=== PATIENT | male | born 1970 | race Caucasian/White ===

== ENCOUNTER 2024-02-19 10:00 | Outpatient (AMB) | payer OTHER, SELFPAY ==
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
[2024-02-19 10:16] VITALS: BP 138/98; PULSE 77; O2SAT 98; BMI 29.7
== END 2024-02-19 11:43 | disposition home or self-care (01) ==
PROVIDERS: PCP Physician Assistant Medical; Visit Provider Nurse Practitioner Family
DX: R25.1 Tremor, unspecified (principal); R41.89 Other symptoms and signs involving cognitive functions and awareness; G43.009 Migraine without aura, not intractable, without status migrainosus
CPT/HCPCS: 99204

== ENCOUNTER → 2024-02-19 10:00 | Outpatient (BNVA) | payer OTHER, SELFPAY | PROVIDERS: PCP Physician Assistant Medical; Visit Provider Nurse Practitioner Family ==

== ENCOUNTER 2024-04-08 12:53 | Outpatient (REF) | payer OTHER, SELFPAY ==
--- NOTE | 2024-04-08 12:57 | EEG_ITS ---
FINDINGS: This is a 16-channel EEG with an EKG lead. The patient is reported awake during the tracing. Background EEG rhythm is low to medium amplitude fast with no obvious asymmetry or paroxysmal tendency. Rare lead and muscle artifacts are noted. Photic stimulation does not produce any significant abnormality. Hyperventilation is not performed. Cardiac lead does not reveal any significant abnormality. No sharp wave spikes or paroxysmal tendency noted. IMPRESSION: No significant abnormality noted on this EEG. MD SHALONDA Schafer/BIANCA / [id number]
== END 2024-04-08 12:54 | disposition home or self-care (01) ==
LOC: HO.NEURO 12:53
PROVIDERS: Visit Provider Nurse Practitioner Family
DX: R25.1 Tremor, unspecified (principal); F09 Unspecified mental disorder due to known physiological condition
CPT/HCPCS: 95816

== ENCOUNTER 2024-04-08 16:44 | Outpatient (REF) | payer OTHER, SELFPAY ==
--- NOTE | ~2024-04-08 | MR_ITS ---
EXAMINATION: MR BRAIN WITHOUT CONTRAST CLINICAL INFORMATION: 53-year-old with unspecified tremor. COMPARISON: None available. TECHNIQUE: MRI of the brain was obtained using routine sequences without contrast. FINDINGS: BRAIN VOLUME: Within normal limits within the limitations of qualitative assessment. STRUCTURAL: No malformations. BRAIN AND MENINGES: DWI sequence demonstrates no restricted diffusion to suggest acute or subacute cerebral ischemia. Scattered small zones of FLAIR/T2 signal hyperintensity are noted in the subcortical and deeper white matter of both cerebral hemispheres, which are nonspecific findings, but could reflect chronic ischemic microangiopathy. There is a punctate FLAIR signal hyperintensity in the right jose alberto which is not visible on the standard T2-weighted images and is probably an artifact. SWI imaging demonstrates a small zone of susceptibility-weighted signal loss in the right putamen which is nonspecific and may reflect either a small developmental cavernous venous malformation or small focus of remote microhemorrhage or dystrophic mineralization. No extra-axial fluid collections, space-occupying process or mass effect are identified. VENTRICLES AND SUBARACHNOID SPACES: The ventricular system and subarachnoid spaces are within normal range; there is no hydrocephalus. ORBITAL STRUCTURES: The visualized orbital structures are grossly unremarkable within the limitations of the study. VASCULAR: Signal voids are noted in the visualized major intracranial vessels. OSSEOUS STRUCTURES, SINUSES/MASTOIDS, EXTRACRANIAL SOFT TISSUES: Osseous marrow signal intensity appears grossly unremarkable. There is some mucosal thickening in the maxillary sinuses, right more than left with retention cyst formation, right more than left. MR/MR head/brain wo con IMPRESSION: 1. Probable mild chronic ischemic microangiopathy in the white matter of both cerebral hemispheres. No acute intracranial process. 2. Small focus of susceptibility-weighted signal loss in the right putamen which is nonspecific and may reflect a small developmental cavernous venous malformation or small focus of remote microhemorrhage or nonspecific dystrophic mineralization. 2. Paranasal sinus inflammatory changes. Electronically signed by: Srinivasan Vela MD 06/07/2024 06:03 PM [facility] [place], [place]
== END 2024-04-08 16:45 | disposition home or self-care (01) ==
LOC: HO.MRI 16:44
PROVIDERS: PCP Physician Assistant Medical; Visit Provider Nurse Practitioner Family
DX: R25.1 Tremor, unspecified (principal); F09 Unspecified mental disorder due to known physiological condition; G47.50 Parasomnia, unspecified
CPT/HCPCS: 70551

== ENCOUNTER 2024-06-21 14:59 | Outpatient (REF) | payer OTHER, SELFPAY ==
--- NOTE | ~2024-06-21 | MR_ITS ---
EXAMINATION: MR BRAIN WITHOUT AND WITH CONTRAST CLINICAL INFORMATION: Question of microhemorrhage of right putamen. Worsening tremor. COMPARISON: None available. TECHNIQUE: Multiplanar, multisequence MRI of the brain was obtained before and after the intravenous administration of 9 mL Gadavist. FINDINGS: Mild diffuse commensurate prominence of ventricles and sulci is noted. A mild number scattered supratentorial subcortical white matter punctate T2 hyperintensities are present and are unchanged compared with 04/08/2024. Susceptibility weighted images demonstrate 2 mm low signal focus in the region of the posterior aspect of the right insular cortex posterior to the right putamen (series 11 image 33). This finding is without a definitive correlate on additional sequences. No edema is noted in the brain parenchyma in this region on] knee of axial FLAIR and T2 FSE images. Diffusion-weighted images demonstrate no evidence of acute infarcts. Normal flow related signal intensity is identified in the major intracranial vessels and dural sinuses. Mild-moderate diffuse commensurate prominence of ventricles and sulci and diffuse perivascular prominence is present unchanged compared with 04/08/2024. Normal flow related signal intensity is identified in the major intracranial vessels and dural sinuses. Incidental note is made of small mucosal retention cyst within the left right maxillary sinuses and minimal mucosal thickening within the right maxillary sinus. No mastoid or middle ear cavity effusions identified. Normal appearance of the orbits and globes making allowances for expected artifacts. Craniocervical junction cerebellar tonsils are normal in configuration. Grossly normal appearance of the pituitary. No suspicious marrow abnormalities. MR/MR head/brain wo/w con IMPRESSION: *No change compared with 04/08/2024. *Mild chronic microangiopathic ischemic changes of the brain. *Unchanged single 2 mm focus of signal alteration (low susceptibility weighted signal) posterior to the right putamen within the region of the posterior right insular cortex. This finding is unchanged compared with 04/08/2024. As previously noted, this finding may represent a small focus of chronic hemorrhage possibly related to an otherwise occult cavernous angioma or potentially a remote microhemorrhage. No edema in the adjacent brain parenchyma. This finding is likely chronic and is of uncertain clinical significance. Electronically signed by: Heriberto Olmos MD 06/22/2024 04:11 PM [facility]
--- OUTSIDE RECORDS SUMMARY | 2024-06-21 15:01 | XMS_ITS ---
[facility] Name [facility] Unknown History of Medication Use Medication Directions Dispensed Refills Start Date End Date Stat us aspirin enteric coated (ECOTRIN LOW STRENGTH) 81 MG EC tablet Take 81 mg by mouth. 08/26/2022 active dicyclomine (BENTYL) 20 MG tablet Take 20 mg by mouth. 08/26/2022 active meloxicam (MOBIC) 15 MG tablet TAKE 1 TABLET ONCE A DAY WITH FOOD OR MILK. 08/26/2022 active SUMAtriptan (IMITREX) 50 MG tablet Take 50 mg by mouth. 08/26/2022 active benzonatate (TESSALON) 200 MG capsule Take 1 capsule (200 mg total) by mouth 3 (three) times a day as needed for cough. 08/26/2022 active clobetasol (TEMOVATE) 0.05 % cream APPLY TO BOTH HANDS TWICE FOR NO MORE THAN 2 WEEKS NEEDED 08/26/2022 active albuterol (PROAIR RESPICLICK) 108 (90 Base) MCG/ACT inhaler Inhale 1 puff 4 times daily (every 6 hours) as needed. 08/26/2022 active PANTOprazole (PROTONIX) 40 MG EC tablet Take 40 mg by mouth. 08/26/2022 active OMEprazole (PriLOSEC) 20 MG capsule Take 20 mg by mouth. 08/26/2022 active amLODIPine (NORVASC) 2.5 MG tablet Take 5 mg by mouth. 08/26/2022 ac tive buPROPion (WELLBUTRIN XL) 150 MG 24 hr tablet Take 150 mg by mouth. 08/26/2022 active Problems Problem Status Onset Date Problem Type Date of Resoluti on Source Encounter for screening laboratory testing for COVID-19 virus active [facility] Viral URI active [facility]counterDiagnosisAct [facility]
[2024-06-21] MEDS: gadobutroL 10 ML VIAL IVPUSH (15:51)
== END 2024-06-21 15:00 | disposition home or self-care (01) ==
LOC: HO.MRI 14:59
PROVIDERS: PCP Internal Medicine; Visit Provider Nurse Practitioner Family
DX: R25.1 Tremor, unspecified (principal); R09.89 Other specified symptoms and signs involving the circulatory and respiratory systems; I10 Essential (primary) hypertension
CPT/HCPCS: 70553; A9585

== ENCOUNTER 2024-09-01 14:59 | Outpatient (AMB) | payer OTHER, SELFPAY ==
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
[2024-09-01 15:06] VITALS: BP 120/90; PULSE 66; O2SAT 96; BMI 29.7
--- OUTSIDE RECORDS SUMMARY | 2024-09-01 18:28 | XMS_ITS | Clinical Summary ---
Author Organization [facility] Address [address] [place] [address] Care Team Providers Care Light Bulb Replacer Name Role Phone Kayode Mcqueen MD Primary Care Provider [phone] Allergies No known active allergies Medications Medication Sig Dispensed Refills Start Date End Date Status SYMBICORT 160-4.5 MCG/ACT inhaler 0 09/01/2017 Active VIAGRA 100 MG tablet 0 11/13/2017 Acti ve Multiple Vitamin (MULTIVITAMINS PO) Take by mouth. 0 Ac tive Aspirin Low Dose 81 MG EC tablet Take 81 mg by mouth daily. 0 02/09/2022 Active buPROPion (WELLBUTRIN XL) 150 MG 24 hr tablet Take 150 mg by mouth daily. 0 Active amLODIPine (NORVASC) tablet 2.5 mg Take 2.5 mg by mouth daily. 0 Active omeprazole (PriLOSEC) 20 MG capsule Take 20 mg by mouth daily. 0 Active dicyclomine (BENTYL) 20 MG tablet Take 20 mg by mouth daily. 0 Active Active Problems Problem Noted Date Diagnosed Date Patellofemoral arthritis of right knee 2 Right knee pain 02/14/2022 Incomplete tear of right rotator cuff 01/30/2018 Resolved Problems Problem Noted Date Diagnosed Date Resolved Date Cervicalgia 10/28/2017 01/30/2018 Bursitis/tendonitis, shoulder 10/28/2017 01/30/2018 Family History Medical History Relation Name Comments Arthritis Father Diabetes Father Hyperlipidemia Father Arthritis Mother Cancer Mother Scoliosis Mother Relation Name Status Comments Father Mother Social History Tobacco Use Types Packs/Day Years Used Date Smoking Tobacco: Former Cigarettes Q uit: 10/29/1999 Smokeless Tobacco: Never Alcohol Use Standard Drinks/Week Comments No 0 (1 standard drink = 0.6 oz pur e alcohol) Sex and Gender Information Value Date Recorded Sex Assigned at Not on file Gender Identity Not on file Sexual Orientation Not on file Job Start Date Occupation Industry Not on file Not on file Not on file Last Filed Vital Signs Vital Sign Reading Time Taken Comments Blood Pressure 149/98 02/14/2022 12:58 PM EDT Pulse 84 02/14/2022 12:58 PM EDT Temperature 36.7 ??C (98.1 ??F) 02/14/2022 12:58 PM E DT Respiratory Rate - - Oxygen Saturation 98% 02/14/2022 12:58 PM EDT Inhaled Oxygen Concentration - - Weight 92.1 kg (203 lb) 02/14/2022 12:58 PM EDT Height 180.3 cm (5' 11 ) 02/14/2022 12:58 PM EDT Body Mass Index 28.31 02/14/2022 12:58 PM EDT Plan of Treatment Health Maintenance Due Date Last Done Comments Hepatitis B Vaccines (1 of 3 - 3-dose series) 1971 Hepatitis C Screening 1971 COVID-19 Vaccine (#1) 05/24/1972 Depression Screening 1983 BMI Counseling 11/21/1989 Preventative Health Evaluation 11/21/1989 DTap / Tdap / Td (1 - Tdap) 11/21/1990 Colon Cancer Screening (Colonoscopy) 11/21/2016 Shingrix-Zoster Vaccine (1 of 2) 11/21/2021 Influenza Vaccine (#1) 2024 Pneumococcal Vaccine Aged Out No long er eligible based on patient's age to complete this topic RSV Ped < 20 months Aged Out No longe r eligible based on patient's age to complete this topic Care Teams Light Bulb Replacer Relationship Specialty Start Date End Date Kayode Mcqueen MD [address] [place] [address] PCP - General Internal Medicine 12/09/17
--- OUTSIDE RECORDS SUMMARY | 2024-09-01 18:28 | XMS_ITS | Encounter Summary ---
Author Organization [facility] Address [address] [place] [address] Care Team Providers Care Cloth Washer Operator Name Role Phone Pcp, No Primary Care Provider Unavailabl e Encounter Details Date Type Department Care Team (Late st Contact Info) Description 07/25/2024 Scanned Document [facility] [address] [facility] [address] [place] [phone] Provider, Generic Social History Tobacco Use Types Packs/Day Years Used Date Smoking Tobacco: Former Cigarettes Smokeless Tobacco: Never Alcohol Use Standard Drinks/Week Comments Not Currently 0 (1 standard drink = 0.6 oz pur e alcohol) Sex and Gender Information Value Date Recorded Sex Assigned at Male 08/25/2022 9:01 AM EST Gender Identity Male 08/28/2022 3:45 PM EST Sexual Orientation Choose not to disclose 2022 3:45 PM EST documented as of this encounter Plan of Treatment Not on file documented as of this encounter Visit Diagnoses Not on filedocumented in this encounter Care Teams Cloth Washer Operator Relationship Specialty Start Date End Date Pcp, No [address] [place] [id number] PCP - General 08/07/22 documented as of this encounter
--- OUTSIDE RECORDS SUMMARY | 2024-09-01 18:28 | XMS_ITS | Clinical Summary ---
Author Organization [facility] Address [address] [place] [address] Care Team Providers Care Heat Treat Furnace Operator Name Role Phone Pcp, No Primary Care Provider Unavailabl e Allergies No known active allergies Medications Medication Sig Dispensed Refills Start Date End Date Status amLODIPine (NORVASC) 2.5 MG tablet Take 5 mg by mouth. 02/08/2022 Active aspirin enteric coated (ECOTRIN LOW STRENGTH) 81 MG EC tablet Take 81 mg by mouth. 02/09/2022 Active buPROPion (WELLBUTRIN XL) 150 MG 24 hr tablet Take 150 mg by mouth. 02/08/2022 Active clobetasol (TEMOVATE) 0.05 % cream APPLY TO BOTH HANDS TWICE FOR NO MORE THAN 2 WEEKS NEEDED 05/28/2022 Active dicyclomine (BENTYL) 20 MG tablet Take 20 mg by mouth. Active meloxicam (MOBIC) 15 MG tablet TAKE 1 TABLET ONCE A DAY WITH FOOD OR MILK. 08/05/2022 Active OMEprazole (PriLOSEC) 20 MG capsule Take 20 mg by mouth. Active PANTOprazole (PROTONIX) 40 MG EC tablet Take 40 mg by mouth. 06/21/2022 Active SUMAtriptan (IMITREX) 50 MG tablet Take 50 mg by mouth. 06/07/2022 Active albuterol (PROAIR RESPICLICK) 108 (90 Base) MCG/ACT inhaler Inhale 1 puff 4 times daily (every 6 hours) as needed. Active benzonatate (TESSALON) 200 MG capsuleIndications:I nfluenza A Take 1 capsule (200 mg total) by mouth 3 (three) times a day as needed for cough. 20 capsule 07/25/2024 Active Encounters Date Type Department Care Team Description 07/25/2024 9:30 AM EST Office Visit [facility] [place] [address] [place] [address] To Branham MD de Villier, Daryl, LUTHER Flu-like symptoms (Primary Dx); Influenza A 07/25/2024 Scanned Document [facility] [address] [facility] [address] [place] [id number] Provider, Generic from Last 3 Months Social History Tobacco Use Types Packs/Day Years Used Date Smoking Tobacco: Former Cigarettes Smokeless Tobacco: Never Tobacco Cessation:Counseling Given: Not Answered Alcohol Use Standard Drinks/Week Comments Not Currently 0 (1 standard drink = 0.6 oz pur e alcohol) Sex and Gender Information Value Date Recorded Sex Assigned at Male 08/25/2022 9:01 AM EST Gender Identity Male 08/28/2022 3:45 PM EST Sexual Orientation Choose not to disclose 2022 3:45 PM EST Last Filed Vital Signs Vital Sign Reading Time Taken Comments Blood Pressure 111/74 07/25/2024 10:03 AM EST Pulse 96 07/25/2024 10:03 AM EST Temperature 38.3 ??C (101 ??F) 07/25/2024 10:03 AM ES T Respiratory Rate 18 07/25/2024 10:03 AM EST Oxygen Saturation 97% 07/25/2024 10:03 AM EST Inhaled Oxygen Concentration - - Weight 95.3 kg (210 lb) 07/25/2024 10:03 AM EST Height 180.3 cm (5' 11 ) 07/25/2024 10:03 AM EST Body Mass Index 29.29 07/25/2024 10:03 AM EST Plan of Treatment Health Maintenance Due Date Last Done Comments Hepatitis C Virus Screening 1970 HIV Screening 11/21/1984 DTaP/Tdap/Td Vaccines (1 - Tdap) 11/21/1990 Hepatitis B Vaccines (1 of 3 - 19+ 3-dose series) 11/21/1990 Colonoscopy 11/21/2016 Pneumococcal Vaccines 50+ (1 of 1 - PCV) 11/21/2021 Zoster (Shingles) Vaccine (1 of 2) 11/21/2021 COVID-19 Vaccine (5 - 2023-2 5 season) 2024 04/04/2023, 03/29/2022, 09/26/2020, Additional history exists Influenza Vaccine Completed 04/03/2024, , 03/10/2023, Additional history exists Procedures Procedure Name Priority Date/Time Associated Diagnosis Comments POCT RAPID INFLUENZA Routine 07/25/2024 10:10 AM EST Flu-like symptoms POCT RAPID COVID-19 AG (FDA EUA) Routine 07/25/2024 10:10 AM EST Flu-like symptoms from Last 3 Months Results * POCT Rapid COVID-19 Antigen (FDA EUA) (07/25/2024 10:10 AM EST) COVID-19 Rapid Antigen, POC (FDA EUA) Negative Result Comments: A Positive Result does not rule out bacterial infection or co-infection with other viruses. Clinical correlation advised. A Negative Result in symptomatic patients should be considered presumptive and needs confirmation by PCR. Kit Lot Number [id number] Flight/Transport Nurse Pass Pass Swab, Nasal Specimen from nose / Unknown 07/25/2024 10:10 AM EST Servando Myers PA-C POINT OF CARE TEST ORDERABLES * (ABNORMAL) POCT Rapid Influenza (07/25/2024 10:10 AM EST) Inflenza A Ag Strongly Positive(A) Negative Influenza B Ag Negative Negative Nasopharyngeal 07/25/2024 10 :10 AM EST Servando de Bernadetteer PA-C POINT OF CARE TEST ORDERABLES from Last 3 Months Care Teams Heat Treat Furnace Operator Relationship Specialty Start Date End Date Pcp, No [address] [place] [address] PCP - General 08/07/22
== END 2024-09-01 16:03 | disposition home or self-care (01) ==
PROVIDERS: PCP Physician Assistant Medical; Visit Provider Nurse Practitioner Family
DX: R25.1 Tremor, unspecified (principal); G43.009 Migraine without aura, not intractable, without status migrainosus; I10 Essential (primary) hypertension; R41.89 Other symptoms and signs involving cognitive functions and awareness
CPT/HCPCS: 99214

== ENCOUNTER → 2024-09-01 14:59 | Outpatient (BNVA) | payer OTHER, SELFPAY | PROVIDERS: PCP Physician Assistant Medical; Visit Provider Nurse Practitioner Family ==

== ENCOUNTER 2025-02-01 09:28 | Outpatient (AMB) | payer OTHER, SELFPAY ==
[2025-02-01 09:33] VITALS: BP 140/78; PULSE 74; BMI 30.4
--- NOTE | 2025-02-01 09:33 | A.OFFVIS_ITS ---
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 History Stroke Allergies No Known Allergies Allergy (Verified 09/01/24 15:04) Medication List - Last Reconciled 02/01/25 by Milan Swan MD amlodipine 5 mg PO DAILY aspirin 81 mg PO DAILY betamethasone, augmented 0.05 % 1 appl topical BID bupropion HCl XL 150 mg PO QAM cetirizine (Zyrtec) 10 mg PO DAILY PRN dicyclomine 10 mg PO Q6H PRN fluoxetine 80 mg PO DAILY magnesium oxide 400 mg PO BEDTIME 90 days omeprazole 20 mg PO DAILY propranolol 20 mg (2 x 10 mg) PO BID 90 days riboflavin (vitamin B2) 400 mg PO DAILY 90 days sumatriptan succinate 50 - 100 mg orally at onset of headache, may repeat in 2 hrs PRN; max 2 tabs per day or 4 tabs/week (may take with Ibuprofen) 90 days HPI Comments Details: The patient is a 54-year-old male presenting with concerns related to high blood pressure and a family history of stroke. The patient reports that he developed high blood pressure approximately three years ago following multiple COVID-19 infections and vaccinations. He experienced an episode where his blood pressure reached stroke levels, necessitating overnight observation at a hospital. He has not had a heart attack or stent placement and was previously physically fit, engaging in regular exer cise until about four to five years ago. When he is doing physical activities in the [facility], he may feel some chest tightness/cough but not clear if it is rather asthma/environmental allergies. The patient has a history of asthma, for which he uses inhalers. He also reports a persistent cough, which he attributes to asthma or environmental factors, and experiences seasonal allergies managed with Zyrtec and Flonase. The patient has been diagnosed with sleep apnea and uses a CPAP machine nightly. He reports loud, labored breathing while at rest, which his has noted, and occasional snoring despite CPAP use. The patient's family history is significant for a brother who suffered a massive stroke at the age of 26, with associated cardiac issues such as congestive heart failure. PFSH Medical History (Updated 02/01/25 @ 10:06 by Milan Swan MD) Alcohol dependence in sustained full remission PTSD (post-traumatic stress disorder) Asthma Psoriasis Tremors of nervous system Headache HTN (hypertension) Depression Arthritis 23-polyvalent pneumococcal polysaccharide vaccine indication of asthma in patient 19 to 64 years of age Surgical History History of knee replacement Hx laparoscopic cholecystectomy Family History (Updated 09/01/24 @ 15:04 by Dianna Hooper CMA) Father Diabetes Mother Cancer, colon HTN (hypertension) Brother Stroke Social History Alcohol intake: never Patient Tobacco Use Status: Never used Tobacco Review of Systems Const Denies weakness ENT Denies dizziness Card Denies chest pain, Denies chest pain with activity, Denies syncope, Denies rapid heart rate, Denies pedal edema, Denies edema, Denies leg edema, Denies lightheadedness, Denies palpitations, Denies dyspnea, Denies dyspnea on exertion and Denies orthopnea Resp Reports cough, Denies dyspnea and Denies dyspnea on exertion GI Denies hematochezia and Denies change in stool character Musc Denies abnormal gait, Denies muscle cramps, Denies muscle weakness, Denies numbn ess, Denies radiating pain into limb and Denies tingling Neuro Denies abnormal gait, Denies dizziness, Denies syncope, Denies numbness, Denies tingling and Denies weakness Endo Denies palpitations Physical Exam Vital Signs: Last Vital Signs Pulse 74 02/01/25 09:33 BP 140/78 H 02/01/25 09:33 BMI result Body Mass Index 30.4 Const General: comfortable and no acute distress Orientation/consciousness: patient oriented x3 HEENT Other: Unremarkable Head: Yes normal to inspection Neck Neck: Yes normal visual inspection Chest Chest palpation & inspection: normal inspection of the chest Resp Auscultation: clear to auscultation bilaterally Cardio Palpation: normal PMI Heart sounds: S1 normal heart sound present, S2 normal heart sound present, no gallops, no murmurs and no rubs GI Palpation (GI): Soft to palpation Back/Spine/Pelvis Other: unremarkable Skin General skin exam: no rashes or lesions noted Neuro General: patient oriented x3 Extrem General: Yes normal to inspection Psych Mental Status: mental status grossly normal Office Procedures EKG Details: EKG with underlying sinus rhythm at 74/Min; no ischemic changes; [place] [id number], Complete Assessment & Plan Assessment & Plan (1) Precordial chest pain: Code(s): R07.2 - Precordial pain Category: Medical (2) HTN (hypertension): Code(s): I10 - Essential (primary) hypertension Category: Medical (3) Family history stroke in brother: Code(s): Z82.3 - Family history of stroke Category: Medical Plan The plan includes ordering a heart ultrasound and a cardiac CT scan to assess for any blockages or structural abnormalities. The patient's blood pressure is currently borderline high, and while no changes to medication are being made to day, an increase in amlodipine dosage may be considered in the future if necessary. The patient is advised to follow up with a alteration tailor apprentice or word processing machine operator for further evaluation of his persistent cough and asthma management. Additionally, the patient is encouraged to continue using his CPAP machine for sleep apnea management and to consider having the equipment re-evaluated for proper fit and function. Discussion Notes I discussed with the patient the need for a heart ultrasound and a cardiac CT scan to evaluate for any potential blockages or structural issues. We talked about the current status of his blood pressure, which is borderline high, and the possibility of adjusting his medication in the future if necessary. I advised him to follow up with a alteration tailor apprentice or word processing machine operator for his persistent cough and asthma management, and to ensure his CPAP machine is functioning properly for his sleep apnea. Patient was informed and verbally consented to the use of an ambient scribe for clinic note documentation during this visit. Orders: Orders CA echo transthoracic complete Today R07.2 - Precordial pain CT Cardiac Coronary Angio Today I25.10 - Atherosclerotic heart disease of [place] coronary artery without angina pectoris, R07.2 - Precordial pain Basic Metabolic Panel Today R07.2 - Precordial pain Patient Instructions: - Schedule a heart ultrasound and cardiac CT scan as ordered. - Monitor blood pressure regularly and report any significant changes. - Follow up with a alteration tailor apprentice or word processing machine operator for cough and asthma evaluation. - Continue using CPAP machine nightly and consider having it re-evaluated for proper fit. Coding Level of Care Code New Pt Level 4 (71264) Complex EM visit Add On G2211 Diagnoses Precordial chest pain R07.2 HTN (hypertension) I10 Family history stroke in brother Z82.3 CPT Codes EKG - CPT: 27125-[id number], Complete ([id number])
--- OUTSIDE RECORDS SUMMARY | 2025-02-01 09:59 | XMS_ITS | Clinical Summary ---
Author Organization [facility] Address [address] [place] [address] Care Team Providers Care Capacity Management Specialist Name Role Phone Kayode Mcqueen MD Primary Care Provider [phone] Allergies No known active allergies Medications Medication [...] 84 02/14/2022 12:58 PM EDT Temperature 36.7 C (98.1 F) 02/14/2022 12:58 PM EDT Respiratory Rate - - Oxygen Saturation 98% [...] (1 of 2) 11/21/2021 Influenza Vaccine (#1) 2025 Pneumococcal Vaccine Aged Out No long er eligible based on patient's age to complete this topic RSV Ped < 20 months Aged Out No longe r eligible based on patient's age to complete this topic Care Teams Capacity Management Specialist Relationship Specialty Start Date End Date Kayode Mcqueen MD [address] [place] [address] PCP - General Internal Medicine 12/09/17
--- OUTSIDE RECORDS SUMMARY | 2025-02-01 09:59 | XMS_ITS | Clinical Summary ---
Author Organization [facility] Address [address] [place] [address] Care Team Providers Care Pleater Name Role Phone Pcp, No Primary Care Provider Unavailabl e Allergies No known active allergies Medications amLODIPine (NORVASC) 2.5 MG tablet Take 5 [...] as needed. Active benzonatate (TESSALON) 200 MG capsuleIndicati ons:Influenza A Take 1 capsule (200 mg total) by mouth 3 (three) times a day as needed for cough. 20 capsule 07/25/2024 Active Social History Tobacco Use Types Packs/Day Years Used Date Smoking Tobacco: Former Cigarettes Smokeless Tobacco: Never Tobacco Cessation:Counseling Given: Not Answered Alcohol Use Standard Drinks/Week Comments Not Currently 0 (1 standard drink = 0.6 oz pur e alcohol) Sex and Gender Information Value Date Recorded Sex Assigned at Male 08/25/2022 9:01 AM EST Legal Sex Male 8:58 AM EST Gender Identity Male 08/28/2022 3:45 PM EST Sexual Orientation Choose not to disclose 2022 3:45 PM EST Last Filed Vital Signs Vital Sign Reading Time Taken Comments Blood Pressure 111/74 07/25/2024 10:03 AM EST Pulse 96 07/25/2024 10:03 AM EST Temperature 38.3 C (101 F) 07/25/2024 10:03 AM EST Respiratory Rate 18 07/25/2024 10:03 AM EST [...] 03/29/2022, 09/26/2020, Additional history exists Influenza Vaccine 02/04/2025 04/03/2024, , 03/10/2023, Additional history exists Insurance [employer] HMO/POS Care Teams Pleater Relationship Specialty Start Date End Date Pcp, No [address] [place] [address] PCP - General 08/07/22
--- OUTSIDE RECORDS SUMMARY | 2025-02-01 09:59 | XMS_ITS ---
Author Name [facility] Organization Unknown History of Medication Use Medication Directions Dispensed Refills Start Date End Date Stat us oseltamivir (TAMIFLU) 75 MG capsule Take 1 capsule (75 mg total) by mouth 2 (two) times a day. 07/25/2024 active SUMAtriptan (IMITREX) 50 MG tablet Take 50 mg by mouth. 06/07/2022 active aspirin enteric coated (ECOTRIN LOW STRENGTH) 81 MG EC tablet Take 81 mg by mouth. 02/09/2022 active buPROPion (WELLBUTRIN XL) 150 MG 24 hr tablet Take 150 mg by mouth. 02/08/2022 active Problems Problem Status Onset Date Problem Type Date of Resoluti on Source Influenza A active EncounterDiagnosisAct CCT Flu-like symptoms active EncounterDiagnosisAct CCT Encounters Encounter Type Encounter Reason Primary Diagnosis Location Date Ambulatory Headache Headache [facility] 07/25/2024 Ambulatory Acute upper respiratory infection, unspecified [facility] 08/25/2022 Care Team Organization Name Specialty Phone Email Start Date End [facility] NO PCP Primary Care 07/25/2024 [facility] 05/09/2023 024 [facility] 03/29/2023 024 [facility] 08/25/2022 09/22/2024 [facility] 08/25/2022 08/25/2022
== END 2025-02-01 10:09 | disposition home or self-care (01) ==
LOC: HO.HCS 09:28
PROVIDERS: PCP Physician Assistant Medical; Visit Provider Internal Medicine
DX: R07.2 Precordial pain (principal); I10 Essential (primary) hypertension; Z82.3 Family history of stroke
CPT/HCPCS: 93010; 99204; G2211

== ENCOUNTER → 2025-02-01 09:28 | Outpatient (BNVA) | payer OTHER, SELFPAY | PROVIDERS: PCP Physician Assistant Medical; Visit Provider Internal Medicine | DX: R07.2 Precordial pain (principal) | CPT/HCPCS: 93005 ==

== ENCOUNTER 2025-03-02 14:54 | Outpatient (AMB) | payer OTHER, SELFPAY ==
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
[2025-03-02 14:57] VITALS: BP 122/70; PULSE 60; O2SAT 96; BMI 31.1
--- OUTSIDE RECORDS SUMMARY | 2025-03-02 16:18 | XMS_ITS | Clinical Summary ---
Author Organization [facility] Address [address] [place] [address] Care Team Providers Care Electrical Laboratory Technician Name Role Phone Kayode Mcqueen MD Primary Care Provider [phone] Allergies No known active allergies Medications Medication [...] age to complete this topic Care Teams Electrical Laboratory Technician Relationship Specialty Start Date End Date Kayode Mcqueen MD [address] [place] [address] PCP - General Internal Medicine 12/09/17
--- OUTSIDE RECORDS SUMMARY | 2025-03-02 16:18 | XMS_ITS | Encounter Summary ---
Author Organization [facility] Address [address] [place] [address] Care Team Providers Care Greenhouse Staff Name Role Phone Pcp, No Primary Care Provider Unavailabl e Encounter Details Date Type Department Care Team (Late st Contact Info) Description 07/25/2024 Scanned Document [facility] HIM 80 [facility] [address] [place] [phone] Provider, Generic Social History Tobacco Use [...] on filedocumented in this encounter Care Teams Greenhouse Staff Relationship Specialty Start Date End Date Pcp, No [address] [place] [id number] PCP - General 08/07/22 documented as of this encounter
--- OUTSIDE RECORDS SUMMARY | 2025-03-02 16:18 | XMS_ITS | Clinical Summary ---
Author Organization [facility] Address [address] [place] [address] Care Team Providers Care Historical Guide Name Role Phone Pcp, No Primary Care [...] history exists Insurance [employer] HMO/POS Care Teams Historical Guide Relationship Specialty Start Date End Date Pcp, No [address] [place] [address] PCP - General 08/07/22
== END 2025-03-02 16:04 | disposition home or self-care (01) ==
LOC: HO.HSMS 14:55
PROVIDERS: PCP Physician Assistant Medical; Visit Provider Nurse Practitioner Family
DX: R25.1 Tremor, unspecified (principal); G43.009 Migraine without aura, not intractable, without status migrainosus; R41.89 Other symptoms and signs involving cognitive functions and awareness
CPT/HCPCS: 99214

== ENCOUNTER → 2025-03-10 08:05 | Outpatient (REF) | payer OTHER, SELFPAY ==
--- NOTE | 2025-03-10 08:05 | CA_ITS ---
Transthoracic Echocardiogram Patient (Last, First, Middle): Mustapha Rose, Gender: M Date of : 1970 Age: 54 Procedure Date: 03/10/2025 Procedure Type: Transthoracic Echocardiogram Location: OP Height: 180.34 cm Weight: 101.15 kg BSA: 2.21 m2 Heart Rate: 63 bpm BP: 122 / 70 mmHg Caustic Operator: SB Referring MD: Milan Swan MD Small Arms Repairer: Lazaro Campos MD Symptoms: R07.2 - Precordial pain Study Quality: Adequate ECG Rhythm: Sinus Conclusions: - Essentially normal study Findings Left Ventricle Normal left ventricular size, thickness, and systolic function. The visually estimated ejection fraction is between 60-65%. Spectral Doppler is indicative of a normal filling pattern. Right Ventricle Normal right ventricular cavity size and systolic function. Atria Both atria are normal in size. There is no evidence of interatrial shunt. Aortic Valve Normal aortic valve structure and function. There is no aortic valve stenosis. There is no aortic valve regurgitation. Mitral Valve Normal mitral valve structure and function. There is trace mitral valve regurgitation. There is no mitral valve stenosis. Pulmonic Valve The pulmonic valve is likely normal. There is trace pulmonic valve regurgitation. Tricuspid Valve Normal tricuspid valve structure. Tricuspid regurgitation envelope is inadequate for calculation of right ventricular systolic pressure. Normal right atrial pressure. There is no evidence of pulmonary hypertension. Great Vessels All visible segments of the aorta are normal in size. The pulmonary artery was not well visualized. Venous The inferior vena cava is normal in size and collapses greater than 50% with inspiration. Pericardium/Pleural There is no evidence of pericardial effusion. Prior Study Comparison No prior study available for comparison. Measurements 2D Linear Measurements IVSd: 1.22 0.6-0.9/0.6-1.0 cm LVIDd: 4.61 3.9-5.3/4.2-5.9 cm LVIDd Index: 2.09 2.4-3.2/2.2-3.1 cm/m2 LVIDs: 3.40 2.0-3.6 cm LVPWd: 0.80 0.7-1.1 cm LA Diam: 3.80 2.7-3.8/3.0-4.0 cm LAIDs Index: 1.72 1.5-2.3 cm/m2 LV Mass: 200.65 67-162/88-224 g LV Mass Index: 90.79 43-95/49-115 g/m2 LVOT Diam: 2.30 3.0+(-)1.3 cm 2D Systolic Function EF 4C: 64.50 >55% EF 2C: 56.20 >55% EF BiP: 61.30 >55% Mitral Valve MV Pk E: 0.89 MV PK A: 0.74 MV Decel Time: 180.00 E/A: 1.20 E'Lateral: 10.10 E'Medial: 6.85 E/E' Med: 12.90 E/E' Lat: 8.80 PHT: 53.00 MVA PHT: 4.15 Decel Bethel: 4.94 Aortic Valve AoV Pk Ry: 1.18 AoV Pk Grad: 6.00 MADDY: 4.22 LVOT LVOT Pk Ry: 1.14 LVOT Mn Ry: 0.80 LVOT VTI: 0.24 LVOT Pk Grad: 5.00 LVOT Mn Grad: 3.00 LVOT Diam: 2.30 LVOT Area: 4.15 Diastolic Function MV Pk E: 0.89 MV Pk A: 0.74 E/A: 1.20 E'Medial: 6.85 E/E' Med: 12.90 E' Laterial: 10.10 E/E' Lat: 8.80 Right Ventricle TAPSE (mm): 21.90 TVS' Ry: 10.70 Tricuspid Valve RA Press: 8.00 Great Vessels Aorta Sinus of Valsalva: 3.00 2.0-3.5 cm Ao Asc: 3.80 2.1-3.4 cm Pulmonary Veins Pulm Vein S/D 1.50 Pulmonary Valve PV Pk Ry: 0.74 Peak PV Grad: 2.00 Updated in Other Vendor System with Status of Final Lazaro Campos MD electronically signed on 03/10/2025 2:24:54 PM with status of Final
--- OUTSIDE RECORDS SUMMARY | 2025-03-10 08:20 | XMS_ITS | Encounter Summary ---
Author Organization [facility] Address [address] [place] [address] Care Team Providers Care Container Finisher Name Role Phone Pcp, No Primary Care Provider Unavailabl e Encounter Details Date Type Department Care Team (Late st Contact Info) Description 07/25/2024 Scanned Document [facility] HIM 80 [facility] [address] [place] [phone] Provider, Generic Social History Tobacco Use [...] on filedocumented in this encounter Care Teams Container Finisher Relationship Specialty Start Date End Date Pcp, No [address] [place] [id number] PCP - General 08/07/22 documented as of this encounter
--- OUTSIDE RECORDS SUMMARY | 2025-03-10 08:20 | XMS_ITS | Clinical Summary ---
Author Organization [facility] Address [address] [place] [address] Care Team Providers Care Curing Room Supervisor Name Role Phone Pcp, No Primary Care [...] history exists Insurance [employer] HMO/POS Care Teams Curing Room Supervisor Relationship Specialty Start Date End Date Pcp, No [address] [place] [address] PCP - General 08/07/22
--- OUTSIDE RECORDS SUMMARY | 2025-03-10 08:21 | XMS_ITS | Clinical Summary ---
Author Organization [facility] Address [address] [place] [address] Care Team Providers Care Electric Welder Name Role Phone Kayode Mcqueen MD Primary Care Provider [phone] Allergies No known active allergies Medications Medication [...] age to complete this topic Care Teams Electric Welder Relationship Specialty Start Date End Date Kayode Mcqueen MD [address] [place] [address] PCP - General Internal Medicine 12/09/17
== END ==
LOC: HO.CARD 08:05
PROVIDERS: PCP Internal Medicine; Visit Provider Internal Medicine
DX: R07.2 Precordial pain (principal)
CPT/HCPCS: 93306

== ENCOUNTER → 2025-03-10 08:05 | Outpatient (BNV) | payer OTHER, SELFPAY | PROVIDERS: PCP Internal Medicine; Visit Provider Internal Medicine Cardiovascular Disease | DX: I34.0 Nonrheumatic mitral (valve) insufficiency (principal); R07.2 Precordial pain | CPT/HCPCS: 93306 ==

== ENCOUNTER 2025-03-31 14:25 | Outpatient (REF) | payer OTHER, SELFPAY ==
[2025-03-31 15:30] LABS: Anion Gap 8 (12-20); Blood Urea Nitrogen 17 mg/dL (9-16); Calcium 8.7 mg/dL (8.4-10.2); Carbon Dioxide 31 mmol/L (22-29); Chloride 107 mmol/L (96-108); Estimated Glomerular Filt Rate > 60; Potassium 4.0 mmol/L (3.3-5.1); Sodium 142 mmol/L (135-145)
--- OUTSIDE RECORDS SUMMARY | 2025-03-31 18:47 | XMS_ITS | Clinical Summary ---
Author Organization [facility] Address [address] [place] [address] Care Team Providers Care Gate Cutter Name Role Phone Pcp, No Primary Care [...] Zoster (Shingles) Vaccine (1 of 2) 11/21/2021 Influenza Vaccine 02/04/2025 04/03/2024, , 03/10/2023, Additional history exists COVID-19 Vaccine (2024-2 6 season) 2025 04/04/2023, 03/29/2022, 09/26/2020, Additional history exists Insurance [employer] HMO/POS Care Teams Gate Cutter Relationship Specialty Start Date End Date Pcp, No [address] [place] [address] PCP - General 08/07/22
--- OUTSIDE RECORDS SUMMARY | 2025-03-31 18:47 | XMS_ITS | Encounter Summary ---
Author Organization [facility] Address [address] [place] [address] Care Team Providers Care Prototype Sewer Name Role Phone Pcp, No Primary Care Provider Unavailabl e Encounter Details Date Type Department Care Team (Late st Contact Info) Description 07/25/2024 Scanned Document [facility] HIM 80 [facility] [address] [place] [phone] Provider, Generic Social History Tobacco Use [...] on filedocumented in this encounter Care Teams Prototype Sewer Relationship Specialty Start Date End Date Pcp, No [address] [place] [id number] PCP - General 08/07/22 documented as of this encounter
--- OUTSIDE RECORDS SUMMARY | 2025-03-31 18:47 | XMS_ITS | Clinical Summary ---
Author Organization [facility] Address [address] [place] [address] Care Team Providers Care Retirement Officer Name Role Phone Kayode Mcqueen MD Primary Care Provider [phone] Allergies No known active allergies Medications Medication [...] age to complete this topic Care Teams Retirement Officer Relationship Specialty Start Date End Date Kayode Mcqueen MD [address] [place] [address] PCP - General Internal Medicine 12/09/17
== END 2025-03-31 14:26 | disposition home or self-care (01) ==
LOC: HO.LAB 14:25
PROVIDERS: PCP Internal Medicine; Visit Provider Internal Medicine
DX: R07.2 Precordial pain (principal)
CPT/HCPCS: 36415; 80048

== ENCOUNTER 2025-05-17 13:43 | Outpatient (AMB) | payer OTHER, SELFPAY ==
--- NOTE | 2025-05-17 13:52 | A.OFFVIS_ITS ---
Vital Signs 05/17/25 13:53 Height 5 ft 11 in Weight 225 lb 4.999 oz BMI 31.4 BP 128/80 Blood Pressure Location Lt brachial Position Sitting Pulse 66 Pulse Source Pulse Oximeter Intake Visit Reasons: f/up cta/ echo/ HS Is Consultant Required: No Accompanied by: Self / Same As Patient Allergies No Known Allergies Allergy (Verified 05/17/25 13:55) Medication List - Last Reconciled 05/17/25 by Mathieu Whiting NP amlodipine 5 mg PO DAILY aspirin 81 mg PO DAILY bupropion HCl XL 150 mg PO QAM dicyclomine 10 mg PO Q6H PRN fluoxetine 80 mg PO DAILY levocetirizine (Allergy Relief (levocetirizine)) 5 mg PO DAILY magnesium oxide 400 mg PO BEDTIME 90 days multivitamin 1 tab PO DAILY omeprazole 20 mg PO DAILY propranolol 20 mg (2 x 10 mg) PO BID 90 days riboflavin (vitamin B2) 400 mg PO DAILY 90 days sumatriptan succinate 50 - 100 mg orally at onset of headache, may repeat in 2 hrs PRN; max 2 tabs per day or 4 tabs/week (may take with Ibuprofen) 90 days HPI Comments Details: This is a 54-year-old male patient coming in for a follow-up visit. Patient was previously seen in the office for chest tightness for which patient underwent an echo and a coronary CTA. Patient at that time was also reporting persistent cough for which patient says that he is following pulmonology at [facility] who has changed his medications for asthma and his allergies. Patient denies any recurrent symptoms of chest tightness however patient does note that he had 2 episodes of dizziness in the last 1 month. Patient notes that he was not doing anything exertional or bending over. Patient noted his blood pressure was a little but elevated after the episode. Patient is otherwise denying any exertional chest pain, shortness of breath, palpitations, orthopnea, PND, leg edema, presyncope or syncope. Patient is reporting compliance with all his medications. Patient does note that he is father had a history of AFib. [facility] Medical History Alcohol dependence in sustained full remission PTSD (post-traumatic stress disorder) Asthma Psoriasis Tremors of nervous system Headache HTN (hypertension) Depression Arthritis 23-polyvalent pneumococcal polysaccharide vaccine indication of asthma in patient 19 to 64 years of age Surgical History History of knee replacement Hx laparoscopic cholecystectomy Family History Father Diabetes Mother Cancer, colon HTN (hypertension) Brother Stroke Social History Alcohol intake: never Patient Tobacco Use Status: Never used Tobacco Review of Systems Const Denies daytime sleepiness, Denies difficulty sleeping, Denies snoring, Denies stops breathing during sleep and Denies weakness Card Denies chest pain, Denies rapid heart rate, Denies irregular heart rhythm, Denies claudication, Denies leg edema, Denies lightheadedness, Denies palpitations, Denies dyspnea, Denies dyspnea on exertion, Denies orthopnea, Denies paroxysmal nocturnal dyspnea and Denies slow heart rate Resp Denies cough, Denies dyspnea, Denies dyspnea on exertion and Denies snoring GI Reports no additional complaints, Denies hematochezia, Denies change in stool character and Denies dyspepsia Musc Denies abnormal gait, Denies muscle weakness and Denies numbness Neuro Denies abnormal gait, Denies numbness and Denies weakness Endo Denies palpitations Physical Exam Vital Signs: Last Vital Signs Pulse 66 05/17/25 13:53 BP 128/80 05/17/25 13:53 BMI result Body Mass Index 31.4 Const General: cooperative, healthy appearing, comfortable and no acute distress Orientation/consciousness: patient oriented x3 HEENT Head: Yes normal to inspection Neck Neck: Yes normal visual inspection, Yes trachea midline and Yes supple Chest Chest palpation & inspection: normal inspection of the chest Resp Effort & Inspection: normal respiratory effort Auscultation: clear to auscultation bilaterally, no crackles, no rales, no rhonchi and no wheezes Cardio Jugular venous distension: no JVD Palpation: normal PMI Rate: regular rate Rhythm: regular rhythm Heart sounds: S1 normal heart sound present, S2 normal heart sound present, no click, no gallops, no murmurs and no rubs Peripheral pulses: Peripheral pulses 2+ throughout GI Inspection: Yes normal to inspection Palpation (GI): Soft to palpation Auscultation: normal bowel sounds Skin General skin exam: no rashes or lesions noted Neuro General: patient oriented x3 Extrem General: Yes normal to inspection, No no pedal edema and No calf tenderness Psych Appearance: grossly normal Mental Status: mental status grossly normal Speech and movement: Normal speech and movement present Assessment & Plan Assessment & Plan (1) Dizziness: Code(s): R42 - Dizziness and giddiness Category: Medical Plan: Given his reports of chest pain, patient underwent an echo and a coronary CTA. 03/10/2025-echo study showed a normal LV systolic function with the ejection fraction between 60-65% with no wall motion abnormality. 04/07/25-coronary CTA showed minimal atherosclerotic disease in the 1st diagonal branch without atherosclerotic disease in other vessels. No recurrent symptoms of chest discomfort. Patient monitors his lipid profile with PCP and states that they are stable. Ideally, LDL goal close to 70. Given his reports of dizziness, offered doing a Holter study however at this time patient would like to hold off on further testing given he had only 2 episodes in the past. Recommended monitoring his blood pressure. Recommended using a smart watch to track heart rates as well as alerts for arrhythmias. Patient states that he is going to invest in 1. Advised to call the office in case of any recurrent symptoms. (2) HTN (hypertension): Code(s): I10 - Essential (primary) hypertension Category: Medical Plan: Blood pressure today is well-controlled. Patient is out of amlodipine and therefore we will send a refill. Advised monitoring blood pressures at home with a goal less than 130/80. Advised on heart healthy diet, regular exercise, losing weight, med compliance, and aggressive management of vascular risk factors. Follow up in 3 months. In the interim, patient will call the office with any concerns or change in symptoms. This note was generated using voice recognition software. While every effort has been made to ensure accuracy and proper aviation safety inspector, there may be occasional errors that could affect the content or meaning of the described symptoms. Medications: New amlodipine 5 mg PO DAILY 90 tabs 0RF Coding Level of Care Code Est Pt Level 4 (73761) Complex EM visit Add On G2211 Diagnoses Dizziness R42 HTN (hypertension) I10 Time Spent (min) 31 Comment Time spent in reviewing the chart, test results, assessment, counseling and doc umentation.
[2025-05-17 13:53] VITALS: BP 128/80; PULSE 66; BMI 31.4
--- OUTSIDE RECORDS SUMMARY | 2025-05-17 15:20 | XMS_ITS | Clinical Summary ---
Author Organization [facility] Address [address] [place] [address] Care Team Providers Care Flight Crew Scheduler Name Role Phone Pcp, No Primary Care [...] 50+ (1 of 1 - PCV) 11/21/2021 RSV Vaccine 50 years and old er and Patients (1 - Risk 50-74 years 1-dose series) 11/21/2021 Zoster (Shingles) Vaccine (1 of 2) 11/21/2021 Influenza Vaccine 02/04/2025 04/03/2024, , 03/10/2023, Additional history exists COVID-19 Vaccine (2024-2 6 season) 2025 04/04/2023, 03/29/2022, 09/26/2020, Additional history exists Insurance [employer] HMO/POS Care Teams Flight Crew Scheduler Relationship Specialty Start Date End Date Pcp, No [address] [place] [address] PCP - General 08/07/22
--- OUTSIDE RECORDS SUMMARY | 2025-05-17 15:20 | XMS_ITS | Encounter Summary ---
Author Organization [facility] Address [address] [place] [address] Care Team Providers Care Real Estate Administrative Assistant Name Role Phone Pcp, No Primary Care Provider Unavailabl e Encounter Details Date Type Department Care Team (Late st Contact Info) Description 07/25/2024 Scanned Document [facility] [address] [facility] [address] [place] [id number] Provider, Generic Social History Tobacco Use [...] on filedocumented in this encounter Care Teams Real Estate Administrative Assistant Relationship Specialty Start Date End Date Pcp, No [address] [place] [id number] PCP - General 08/07/22 documented as of this encounter
== END 2025-05-17 14:22 | disposition home or self-care (01) ==
LOC: HO.HCS 13:44
PROVIDERS: PCP Physician Assistant Medical
DX: R42 Dizziness and giddiness (principal); I10 Essential (primary) hypertension
CPT/HCPCS: 99214; G2211